=== PATIENT | female | born 1975 | race Caucasian/White ===

== ENCOUNTER 2017-07-25 01:46 | Emergency (ER) | payer MEDICARE, OTHER ==
[~2017-07-25] VITALS: Ht 170.2 cm; Wt 93.0 kg
[2017-07-25] MEDS ORDERED: BENZ2 PO (02:36)
[2017-07-25] MEDS ORDERED: CLON1 PO (02:36)
[2017-07-25] MEDS ORDERED: HALO2 PO (02:37)
[2017-07-25] MEDS ORDERED: PANT20 PO (02:37)
[2017-07-25] MEDS ORDERED: FANAPT6 MG (02:37)
[2017-07-25] MEDS ORDERED: ROPI1 PO (03:43)
== END 2017-07-25 03:48 | disposition home or self-care (01) ==
LOC: ER 01:46
DX: G25.81 Restless legs syndrome (principal); F20.9 Schizophrenia, unspecified; Z79.899 Other long term (current) drug therapy
CPT/HCPCS: 99283